=== PATIENT | female | born 2000 | race Caucasian/White ===

== ENCOUNTER 2021-06-11 21:12 | Emergency (ER) | payer BC ==
[~2021-06-11] VITALS: Ht 170.2 cm; Wt 54.4 kg
[2021-06-11 21:24] VITALS: BP 113/82
--- NOTE | 2021-06-11 21:45 | NUR ---
PT AMBULATED TO ER BED 08 UNASSISTED
--- NOTE | 2021-06-11 21:45 | NUR ---
PT. IS A 20 Y/O FEMALE THAT CAME INTO ED WITH C/O OF RIGHT EYE PAIN. PT. STATES THAT IT STARTED A DAY AND A HALF AGO. PT. STATES IT IS PAINFUL WHEN BLINKING, RATING PAIN 7/10 ON THE PAIN SCALE AT THIS TIME. DENIES TRAUMA TO EYE. UPON ARRIVAL, PT. RIGHT EYE IS RED AND TEARY. DENIES N/V/D; SKIN IS PINK/WARM/DRY; AAOX4 WITH EVEN AND STEADY GAIT; HR EVEN AND REGULAR; PT DENIES ANY FEVER, CP, SOB, OR COUGH AT THIS TIME; ; VSS; PATIENT POSITIONED FOR COMFORT; HOB ELEVATED; BEDRAILS UP X2; BED DOWN. ER MD MADE AWARE OF PT STATUS. PMH: PANCREATITIS AND PEPTIC ULCERS ALLERGIES:NKA
[2021-06-11] MEDS ORDERED: FLUORESCEIN OPTH STRIP 1 MG OP ONE (22:15)
[2021-06-11] MEDS ORDERED: TETRACAINE HCL/PF 0.5% OPTH 4 ML BTL OP ONE (22:15)
[2021-06-11] MEDS ORDERED: TOBR5SOL17 RIGHT EYE (22:46)
[2021-06-11] MEDS ORDERED: NAPR-54 PO (22:46)
[2021-06-11 23:00] VITALS: BP 113/82
--- NOTE | 2021-06-11 23:00 | NUR ---
Patient discharged with v/s stable. Written and verbal after care instructions given and explained. Patient alert, oriented and verbalized understanding of instructions. Ambulatory with steady gait. All questions addressed prior to discharge. ID band removed. Patient advised to follow up with PMD. Rx of AKTOB AND NAPROSYN given. Patient educated on indication of medication including possible reaction and side effects. Opportunity to ask questions provided and answered.
== END 2021-06-11 23:00 | disposition home or self-care (01) ==
LOC: MED 21:12
DX: H10.31 Unspecified acute conjunctivitis, right eye (principal); Z79.899 Other long term (current) drug therapy
CPT/HCPCS: 99283

== ENCOUNTER 2021-10-17 11:20 | Emergency (ER) | payer BC ==
[~2021-10-17] VITALS: Ht 170.2 cm; Wt 50.8 kg
[~2021-10-17 11:20] MED LIST: NAPR-54 PO; TOBR5SOL17 RIGHT EYE
[2021-10-17 11:31] VITALS: BP 104/76
[2021-10-17] MEDS ORDERED: DOXY-690 PO (12:01)
[2021-10-17] MEDS ORDERED: NAPR-54 PO (12:01)
--- NOTE | 2021-10-17 12:04 | NUR ---
Patient discharged with v/s stable. Written and verbal after care instructions given and explained. Patient alert, oriented and verbalized understanding of instructions. Ambulatory with steady gait. All questions addressed prior to discharge. ID band removed. Patient advised to follow up with PMD. Rx of dixycycline, naproxen given. Patient educated on indication of medication including possible reaction and side effects. Opportunity to ask questions provided and answered.
== END 2021-10-17 12:04 | disposition home or self-care (01) ==
LOC: MED 11:20
DX: L53.9 Erythematous condition, unspecified (principal); L29.9 Pruritus, unspecified; T36.8X5A Adverse effect of other systemic antibiotics, initial encounter; R00.0 Tachycardia, unspecified; Z79.1 Long term (current) use of non-steroidal anti-inflammatories (NSAID); Z79.2 Long term (current) use of antibiotics; Y92.89 Other specified places as the place of occurrence of the external cause
CPT/HCPCS: 99283